=== PATIENT | female | born 1980 | race Caucasian/White ===

== ENCOUNTER 2021-10-28 07:52 | Outpatient (CLI) | payer OTHER, SELFPAY ==
--- NOTE | 2021-10-28 08:06 | ECG_ITS ---
Measurements Intervals [place] Rate: 55 P: 61 TN: 166 QRS: -2 QRSD: 101 T: 9 QT: 411 QTc: 396 Interpretive Statements SINUS BRADYCARDIA LOW QRS VOLTAGE IN PRECORDIAL LEADS BORDERLINE ECG NO PREVIOUS ECG AVAILABLE FOR COMPARISON Electronically Signed On 10-28-2021 9:13:06 CDT by Efrem Farah D.O.
== END 2021-10-28 07:53 | disposition home or self-care (01) ==
PROVIDERS: PCP Family Medicine; Visit Provider Obstetrics & Gynecology
DX: I10 Essential (primary) hypertension (principal); Z01.818 Encounter for other preprocedural examination; R94.31 Abnormal electrocardiogram [ECG] [EKG]
CPT/HCPCS: 93005

== ENCOUNTER 2021-11-02 12:07 | Outpatient (CLI) | payer OTHER, SELFPAY ==
[2021-11-02 13:07] LABS: SARS-CoV-2 RNA PCR Negative
== END 2021-11-02 12:08 | disposition home or self-care (01) ==
PROVIDERS: PCP Family Medicine; Visit Provider Obstetrics & Gynecology
DX: Z01.812 Encounter for preprocedural laboratory examination (principal); Z20.822 Contact with and (suspected) exposure to COVID-19
CPT/HCPCS: C9803; U0003; U0005

== ENCOUNTER 2021-11-03 02:10 | Day surgery (SDC) | payer OTHER, SELFPAY ==
[2021-10-25 09:04] VITALS: BMI 55.6
--- NOTE | 2021-10-25 09:05 | PC.NURSE ---
Addendum entered by Mae Horton RN 10/25/21 09:18: STOP VITAMINS AND SUPPLIMENTS ON 07/17 Original Note: Report to the Outpatient Waiting Room, entrance under the [facility] located off [facility], at time _0630 on date _11/03/21_. OR Time: 829____. - You and your visitor will be asked to self-screen and do not enter if you have any COVID symptoms. - Only one visitor and NO children visitors are allowed at this time. - The patient visitor is requested to leave or wait in car when not with patient due to restrictions. - A mask is required within the hospital. Patients may have clear liquids (water, carbonated beverages, clear teas, apple juice) until 3 hours prior to surgery with a maximum of 20 ounces. - No food from midnight until time of surgery - Infants may have breast milk until 4 hours before surgery, infant formula 6 hours prior to surgery. - Children will be allowed to drink immediately following surgery. If applicable, please bring a bottle or sippy cup to assist with drinking. Juice, water, soda, and popsicles are readily available. For infants on formula, please bring formula the day of surgery. Pacifiers are allowed. Take the following medications with a SIP of water the morning of surgery: NONE Medications to discontinue per physician Date to take last dose Please no make-up, nail danish, hairspray, perfume, deodorant, or body powder the day of surgery. No jewelry (including any body piercings) or valuables the day of surgery, leave them at home. Please take a shower or bath the night before, or the morning of, surgery with an antibacterial soap. Wear comfortable, loose fitting clothing. Children are encouraged to wear pajamas. - Jewelry must be removed prior to entering the operating room. Rings and piercings that are not removed may be cut off. - The hospital will not accept responsibility for valuables. - Please leave all valuables, including medications, at home the day of surgery. If you are going home after surgery, a licensed cdl driver must drive you home. - NO public transportation without another adult. - We recommend that an adult stay with you for 24 hours following discharge. - We also recommend that you do not drive, make important decision, drink alcoholic beverages, or take any drugs that were not prescribed by your health care provider for at least 24 hours after your discharge time. For Pediatric surgeries, we recommend two adults accompany the child home (only one inside the building at this time). Follow any additional instructions given to you from your surgeon. If you or anyone in your household have experienced Covid symptoms in the past week, please notify your surgeon or the nurse liaison at the phone number below for possible testing. Telephone instructions given to _PATIENT_and asked if any additional questions and then verbalized understanding. Patient advised to call surgeon office or pre surgery nurse liaison [phone] if any additional questions.
--- NOTE | 2021-11-02 10:07 | SUR.PREOP ---
Patient called to report sore throat and nasal congestion/runny nose that began on Sunday (10/30). Pt states that sore throat is resolved, still having congestion/runny nose. Pt states that she did a home Covid test on Sunday (11/01) that was negative. Pt coming in for Covid PCR test today. Instructed to isolate after testing until surgery tomorrow. Pt will be called with results.
--- NOTE | 2021-11-02 17:10 | PM.IMHP ---
H&P: HPI History of Present Illness Date/Time: 11/02/21 17:10 41-year-old female 3 para 2011 presents for evaluation treatment of heavy menstrual cycles. When she has an IUD in place it works well for her, but recently had this removed and does not desire replacement. Due to history of PE control pills are not an option, and she strongly desires treatment for this problem. She states her cycles are 5-7 days 3-5 days very heavy clotting and cramping and we discussed multiple options and will proceed as per the assessment and plan. Also desires permanent sterilization in the form of bilateral salpingectomy, Understanding the permanence failure rate increased risk of regret and ectopic. Chief Complaint: Menometrorrhagia Review of Systems Review of Systems: All systems reviewed & are unremarkable except as noted in HPI and below PMFSH Past Medical History Medical History Anxiety Encounter for insertion of mirena IUD Encounter for IUD insertion 08/28/11 Mirena insertion 07/11/16 Mirena removal/reinsertion 08/23/16 Mirena insertiona Encounter for IUD removal 07/11/16 Mirena removal/reinsertion 08/10/16 hscope IUD removal--Mirena Encounter for screening examination for sexually transmitted disease Gestational diabetes History of hysterosalpingogram (06/15/09) Miscarriage (03/08/06) Pulmonary embolism affecting (~2010) @17 weeks gestation Remove/insert IUD (07/18/21) mirena iud removal and reinsertion Surgical History Surgical History History of 01/01/08 primary c/s--elective, type A1 diabetes 02/22/11 rpt c/s--pulmonary embolus History of dilation and curettage 03/08/06 suction d&c--miscarriage History of gynecological procedure (08/23/21) mirena iud removal Out of place History of hysteroscopy (08/10/16) hscope IUD removal Family History Family History Mother Hypertension Grandparent Family history of malignant neoplasm of kidney Diabetes mellitus maternal grandfather Hypertension maternal grandmother Malignant neoplasm of skin maternal grandfather Father Sleep apnea Sibling No problems noted. 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 Gender identity (if verbalized by the patient): Female Meds Home Medications and Allergies Home Medications Medication Instructions Recorded Confirmed Type cholecalciferol (vitamin D3) 100 100 mcg PO DAILY #1 cap 08/08/19 10/25/21 Rx mcg (4,000 unit) capsule escitalopram oxalate 10 mg tablet See Rx Instructions .Route 02/14/21 10/25/21 Rx .COMPLEX #90 tabs levothyroxine 75 mcg tablet See Rx Instructions .Route 03/17/21 10/25/21 Rx .COMPLEX #90 tabs nebivolol 10 mg tablet See Rx Instructions .Route 04/18/21 10/25/21 Rx .COMPLEX #90 tabs lisinopril 20 mg tablet See Rx Instructions .Route 05/10/21 10/25/21 Rx .COMPLEX #90 tabs gnkampun-fsm-dvya 18 mg-FA 400 1 tablet PO DAILY 07/27/21 10/25/21 History mcg-calcium 500 mg-vit K 50 mcg tablet (Women's Multivitamin) psyllium husk 0.4 gram capsule 0.4 g PO ONCE 07/27/21 10/25/21 History (Daily Fiber) Allergies Allergy/AdvReac Type Severity Reaction Status Date / Time No Known Allergies Allergy Intermediate Verified 10/25/21 08:57 Exam Const: General: cooperative, healthy appearing and comfortable Resp: Effort & Inspection: normal respiratory effort Auscultation: clear to auscultation bilaterally Cardio: Rate: regular rate R
[2021-11-03] VITALS (11 sets, daily range): BP systolic 128–141; BP diastolic 70–92; PULSE 70–88; RESP 14–22; TEMP 36.1–36.4; O2SAT 97–100
--- NOTE | 2021-11-03 07:18 | WPDHPUPDATE1 ---
History and Physical Update Update Date/Time: 11/03/21 07:18 History and Physical has been reviewed, including an updated exam of the patient. There are NO changes in the patient's condition. Risks, benefits, and alternatives have been discussed and questions answered. Patient agrees to proceed with procedure.
[2021-11-03] MEDS: ACETAMINOPHEN 500 MG TABLET 1000 MG PO (07:25)
[2021-11-03] MEDS: KETOROLAC 15 MG/ML VIAL (*BKC) IV PUSH (07:39)
--- NOTE | 2021-11-03 08:02 | WPDANESEPPF ---
Anes - Initial Pre Proc Eval Procedure: Operation Date: 11/03/21 08:30 Proposed Procedures p Laparoscopic Bilateral Salpingectomy, Hysteroscopy, Dilatation and Curettage with Sharita Endometrial Ablation - Lisandro Garcia MD Date/Time: 11/03/21 08:02 Surgeon: Lisandro Garcia MD Pre Op Diagnosis: menorrhagia, desired sterilization Patient Data Age: 41 Gender: F Height: 1.63 m Weight: 143.8 kg Last Vital Signs Temp 36.1 C L 11/03/21 07:06 Pulse 74 11/03/21 07:06 Resp 16 11/03/21 07:06 BP 134/79 11/03/21 07:06 Pulse Ox 98 11/03/21 07:06 O2 Del Method Room Air 11/03/21 07:06 Allergies Allergy/AdvReac Type Severity Reaction Status Date / Time No Known Allergies Allergy Intermediate Verified 11/03/21 07:22 Home Medications Medication Instructions Recorded Confirmed Type cholecalciferol (vitamin D3) 100 100 mcg PO DAILY #1 cap 08/08/19 11/03/21 Rx mcg (4,000 unit) capsule escitalopram oxalate 10 mg tablet See Rx Instructions .Route 02/14/21 11/03/21 Rx .COMPLEX #90 tabs levothyroxine 75 mcg tablet See Rx Instructions .Route 03/17/21 11/03/21 Rx .COMPLEX #90 tabs nebivolol 10 mg tablet See Rx Instructions .Route 04/18/21 11/03/21 Rx .COMPLEX #90 tabs lisinopril 20 mg tablet See Rx Instructions .Route 05/10/21 11/03/21 Rx .COMPLEX #90 tabs htssnwkw-dfe-jedo 18 mg-FA 400 1 tablet PO DAILY 07/27/21 11/03/21 History mcg-calcium 500 mg-vit K 50 mcg tablet (Women's Multivitamin) psyllium husk 0.4 gram capsule 0.4 g PO ONCE 07/27/21 11/03/21 History (Daily Fiber) Patient hx anesthesia problems: none Family hx anesthesia problems: none Results Review: All pre-operative results and documents have been reviewed as part of the pre-operative evaluation. [facility] Past Medical History Medical History Anxiety Encounter for insertion of mirena IUD Encounter for IUD insertion 08/28/11 Mirena insertion 07/11/16 Mirena removal/reinsertion 08/23/16 Mirena insertiona Encounter for IUD removal 07/11/16 Mirena removal/reinsertion 08/10/16 hscope IUD removal--Mirena Encounter for screening examination for sexually transmitted disease Gestational diabetes History of hysterosalpingogram (06/15/09) Miscarriage (03/08/06) Pulmonary embolism affecting (~2010) @17 weeks gestation Remove/insert IUD (07/18/21) mirena iud removal and reinsertion Surgical History Surgical History History of 01/01/08 primary c/s--elective, type A1 diabetes 02/22/11 rpt c/s--pulmonary embolus History of dilation and curettage 03/08/06 suction d&c--miscarriage History of gynecological procedure (08/23/21) mirena iud removal Out of place History of hysteroscopy (08/10/16) hscope IUD removal Family History Family History Mother Hypertension Grandparent Family history of malignant neoplasm of kidney Diabetes mellitus maternal grandfather Hypertension maternal grandmother Malignant neoplasm of skin maternal grandfather Father Sleep apnea Sibling No problems noted. 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
[2021-11-03] MEDS: LACTATED RINGERS 1,000 ML 30 ML IV CONT (08:10)
[2021-11-03] MEDS: ceFAZolin 3 GM/D5W 100 ML 100 ML IVPB (08:21)
--- NOTE | 2021-11-03 09:16 | P.OP_ITS ---
Procedure Note - Detailed Date of Procedure 11/03/21 Pre-op Diagnosis menorrhagia, desired sterilization Post-op Diagnosis Same Procedure Performed 1. Laparoscopic bilateral salpingectomy 2. Hysteroscopy with uterine curettings 3. Endometrial ablation Surgeon Lisandro Garcia MD Anesthesia General Findings 1. Laparoscopic evaluation revealed no significant abnormalities 2. Hysteroscopy revealed thickened cavity but no specific anatomic issues Description of Procedure Patient prepped and draped in usual manner for this procedure. Cervical lengths were placed uterine mobility during the case. Abdominal trocar sites were marked and placed direct visualization. Once this was done the Harmonic scalp was used to cross the mesial salpinx bilaterally, with tubes removed. Small amount of oozing was noted the left ovary and Antonino was placed in this. Gas w as allowed to escape trocars removed and instruments incisions were closed using 4-0 Monocryl. Cervix was then dilated to allow the hysteroscope to be placed which revealed thickened tissue was noted above. Curettings were obtained difficulty and ablation instrument was placed, the cavity assessment was performed, and instrument activated. At the end of procedure instrument was removed and the patient was sent to recovery room in stable condition. Estimated Blood Loss 20 Drains No Packing No Pathology Yes Complications No immediate complications Condition Stable Disposition PACU [facility] Billing Surgery - Charge Forward: Surgery Billing
[2021-11-03] MEDS: fentaNYL CITRATE INJ (*CRX) 100 MCG/2 ML VIAL 25 MCG IV PUSH ×2 (09:40→09:44)
[2021-11-03] MEDS: oxyCODONE HCL (*CRX) 5 MG TAB IR PO (10:13)
== END 2021-11-03 11:10 | disposition home or self-care (01) ==
PROVIDERS: PCP Family Medicine; Visit Provider Obstetrics & Gynecology
PROC: 0UDB8ZZ Extraction of Endometrium, Via Natural or Artificial Opening Endoscopic (ICD-10-PCS; CPT 58558; principal; 2021-11-03 08:30)
DX: N92.1 Excessive and frequent menstruation with irregular cycle (principal); Z30.2 Encounter for sterilization; N83.8 Other noninflammatory disorders of ovary, fallopian tube and broad ligament; Z86.711 Personal history of pulmonary embolism; F41.9 Anxiety disorder, unspecified; E66.01 Morbid (severe) obesity due to excess calories; Z68.43 Body mass index [BMI] 50.0-59.9, adult
CPT/HCPCS: 58661; 58563; 88302; 88305; 93005; A9270; C9803; J0330; J0690; J1100; J1885; J2250; J2405; J2704; J3010; J7120; U0003; U0005

== ENCOUNTER 2022-03-23 16:19 | Outpatient (CLI) | payer OTHER, SELFPAY ==
--- NOTE | ~2022-03-23 | MM_ITS ---
EXAMINATION: MM screening chelsy BI w zach HISTORY: Screening TECHNIQUE: Craniocaudal and mediolateral oblique 3-D tomosynthesis images were obtained and synthetic 2-D images were generated. CAD analysis was submitted and interpreted. COMPARISON: No prior mammogram is available for comparison at this institution. BREAST PARENCHYMAL COMPOSITION: There are scattered areas of fibroglandular density. FINDINGS: There is a small mass in the upper outer quadrant of the left breast containing calcificati ons. There is no mammographic evidence for malignancy in the right breast.. IMPRESSION: 1. Small mass upper outer quadrant of the left breast. Comparison 2. Comparison to previous outside mammogram is recommended. BI-RADS Category 0: Incomplete: Needs additional imaging evaluation. Reviewed, dictated and finalized at location A. [employer]
== END 2022-03-23 16:20 | disposition home or self-care (01) ==
PROVIDERS: PCP Family Medicine; Visit Provider Obstetrics & Gynecology
DX: Z12.31 Encounter for screening mammogram for malignant neoplasm of breast (principal); R92.8 Other abnormal and inconclusive findings on diagnostic imaging of breast
CPT/HCPCS: 77063; 77067